=== PATIENT | female | born 1945 | race Two or more races ===

== ENCOUNTER 2025-02-09 12:33 | Emergency (ER) | payer OTHER, MEDICAID ==
[~2025-02-09] VITALS: Ht 154.9 cm; Wt 70.3 kg
[2025-02-09 14:25] VITALS: BP 150/70; TEMP 98.6; O2SAT 98
== END 2025-02-09 14:26 | disposition home or self-care (01) ==
LOC: ER 12:41
DX: S52.122A Displaced fracture of head of left radius, initial encounter for closed fracture (principal); W01.0XXA Fall on same level from slipping, tripping and stumbling without subsequent striking against object, initial encounter; Y93.89 Activity, other specified; Y92.89 Other specified places as the place of occurrence of the external cause; Y99.8 Other external cause status
CPT/HCPCS: 73030-TC; 73080-TC